=== PATIENT | male | born 1965 ===

== ENCOUNTER 2016-12-05 09:35 | Day surgery (SDC) | payer OTHER ==
[2016-12-02 08:23] VITALS: BMI 27.3
[2016-12-05] MEDS ORDERED: Lactated Ringer's 1,000 ML IV ONE (12:15)
[2016-12-05] MEDS ORDERED: ceFAZolin IV 1 gm in Dextrose 1 GM/50 ML BAG IVPB ONE (12:26)
[2016-12-05] MEDS ORDERED: Midazolam 2 MG/2 ML VIAL ONE (12:32)
[2016-12-05] MEDS ORDERED: Propofol 10 mg/ml Inj (20 ML) ONE (12:32)
[2016-12-05] MEDS: Bupivacaine HCl 0.25% PF (10 ml) Inj ONE ×2 (12:40→13:35)
[2016-12-05] MEDS ORDERED: Oxycodone/Acetaminophen 5/325 mg Tab PO PRN (13:56)
--- NOTE | 2016-12-05 13:59 | PCM.SURG1 ---
Surgeon's Initial Post Op Note - Surgeon's Notes Surgeon: Dr. Hanks Interpreter And Translator: Dr. Mazariegos PGY-3, Dr. Valladares PGY-2 Type of Anesthesia: General Endo Pre-Operative Diagnosis: right inguinal hernia Operative Findings: see operative report Post-Operative Diagnosis: same Operation Performed: right inguinal hernia repair w/ mesh placement Specimen/Specimens Removed: none Estimated Blood Loss: EBL {In ML}: 5 Blood Products Given: N/A Drains Used: No Drains Post-Op Condition: Good Date of Surgery/Procedure: 12/05/16 Time of Surgery/Procedure: 13:59
[2016-12-05] MEDS: HYDROmorphone 0.5 mg/0.5 ml ISec IVP PRN ×2 (14:17→14:40)
[2016-12-05 16:34] VITALS: BP 153/50; PULSE 63; RESP 18; TEMP 97; O2SAT 100
--- NOTE | 2016-12-21 13:01 | PCM.OP ---
Date of Operation : 12/05/2016 Operative Surgeon: Sriram Solis Dial Painter: Sierra Mazariegos DO and Dex Guillen Anesthesia: General Preoperative Diagnosis: Right Inguinal Hernia Postoperative Diagnosis: Same Procedure/s: Repair of Right Inguinal Hernia, PHS (Prolene Hernia System) History: Patient is a 50 year old male with a symptomatic large right inguinal hernia. Description of Operation/Operative Findings: This is primarily an indirect inguinal hernia. Procedure: Patient was given general anesthesia and intravenous antibiotics. Standard skin prep and placement of ___ drape was carried out. Incision was made down to the subcutaneous external oblique ____ which was divided. The coordinates contents identified, the sac identified. Placed back into the peritoneal cavity the PHS, Prolene Hernia System was placed on top of this. Was sutured and stapled to the surrounding fascia. The external oblique was closed.The skin was closed with a running subcuticular markings. The operation carried out was repair of right inguinal hernia with PHS , Prolene Hernia System. A copy of this report will be sent to Dr. Franklin SPAULDING
== END 2016-12-05 17:17 | disposition home or self-care (01) ==
LOC: C.SDS 09:35
PROVIDERS: ATTEND Surgery Vascular Surgery
DX: K40.90 Unilateral inguinal hernia, without obstruction or gangrene, not specified as recurrent (principal)
CPT/HCPCS: 49505; C1781; J0690; J1170; J2250; J2704; J3010; J7120